=== PATIENT | female | born 1980 | race Caucasian/White ===

== ENCOUNTER 2020-01-14 13:24 | Emergency (ER) | payer BC ==
[~2020-01-14] VITALS: Ht 170.2 cm; Wt 93.4 kg
[2020-01-14 13:29] VITALS: BP 157/91
--- NOTE | 2020-01-14 13:35 | NUR ---
PT AMB TO BED 7. Addendum: 01/14/20 at 1423 by [email or web address] REPORTED TO JOSE CHOUDHURY.
--- NOTE | 2020-01-14 14:35 | NUR ---
Patient asssesed and treated by REGGIE BALLESTEROS. Pt discharged with VS Stable. Written and verbal after care instructions about soft tissue injury of neck given and explained. Patient alert, oriented and verbalized understanding of instructions. Ambulatory with steady gait. All questions addressed prior to discharge. ID band removed. Patient advised to follow up with PMD. Rx of ibuprofen given. Patient educated on indication of medication including possible reaction and side effects. Opportunity to ask questions provided and answered.
[2020-01-14 14:37] VITALS: BP 157/91
== END 2020-01-14 14:35 | disposition home or self-care (01) ==
LOC: MED 13:24
DX: M54.2 Cervicalgia (principal); R03.0 Elevated blood-pressure reading, without diagnosis of hypertension; F17.210 Nicotine dependence, cigarettes, uncomplicated; Z71.6 Tobacco abuse counseling
CPT/HCPCS: 99282